=== PATIENT | female | born 1940 | race Asian ===

== ENCOUNTER 2023-10-18 16:13 | Inpatient (IN) | payer MEDICARE ==
[~2023-10-18] VITALS: Ht 160 cm; Wt 49.4 kg
[2023-10-18] MEDS ORDERED: ATOR20TA PO (17:23)
[2023-10-18] MEDS ORDERED: APIX2.5T PO (17:23)
[2023-10-18] MEDS ORDERED: BIOT5000 PO (17:23)
[2023-10-18] MEDS ORDERED: FLUT16SP16 NS (17:23)
[2023-10-18] MEDS ORDERED: ACYC400T19 PO (17:23)
[2023-10-18 17:46] LABS: BASOPHILS # (AUTO) 0.1 K/uL (0.0-0.2); BASOPHILS % (AUTO) 0.8 % (0.0-2.0); EOSINOPHILS % (AUTO) 0.1 % (0.0-6.0); HEMATOCRIT 29 % (33-45); HEMOGLOBIN 9.8 g/dL (11.5-14.8); LYMPHOCYTES # (AUTO) 1.2 K/uL (0.8-4.8); LYMPHOCYTES % (AUTO) 16.5 % (20.0-44.0); MEAN CORPUSCULAR HEMOGLOBIN 29 PG (26.0-33.0); MEAN CORPUSCULAR HGB CONC 34 g/dl (31.0-36.0); MEAN CORPUSCULAR VOLUME 84 fL (82-100); MONOCYTES # (AUTO) 2.2 K/uL (0.1-1.30); NEUTROPHILS # (AUTO) 3.8 K/uL (1.8-8.9); NEUTROPHILS % (AUTO) 52.6 % (43.0-81.0); PLATELET COUNT (AUTO) 52 K/uL (150-450); RED BLOOD CELL COUNT(AUTO) 3.45 MIL/uL (4.0-5.2); RED CELL DISTRIBUTION WIDTH 20.4 % (11.5-15.0); WHITE BLOOD COUNT (AUTO) 7.2 K/uL (4.3-11.0)
[2023-10-18 18:00] LABS: ALANINE AMINOTRANSFERASE 116 U/L (12-78); ALBUMIN 2.4 g/dL (3.4-5.0); ALKALINE PHOSPHATASE 680 U/L (46-116); ASPARTATE AMINOTRANSFERASE 540 U/L (15-37); BILIRUBIN,DIRECT 1.4 mg/dL (0.0-0.2); BILIRUBIN,TOTAL 2.2 mg/dL (0.2-1.0); CALCIUM, SERUM 9.4 mg/dL (8.5-10.1); CARBON DIOXIDE 18 mmol/L (21-32); CHLORIDE 93 mmol/L (98-107); CREATININE 0.7 mg/dL (0.6-1.3); POTASSIUM 3.6 mmol/L (3.5-5.1); SODIUM SERUM 131 mmol/L (136-145); TOTAL PROTEIN, SERUM 5.4 g/dL (6.4-8.2); UREA NITROGEN, BLOOD 16 mg/dL (7-18)
[2023-10-18] MEDS: IV NS 0.9% 1,000 ML BAG IV ONE (18:14)
[2023-10-18 18:24] LABS: BAND % (MANUAL) 6 % (0.0-5.0); LYMPHOCYTES % (MANUAL) 20 % (16-48); MONOCYTES % (MANUAL) 20 % (0-11.0); NEUTROPHILS % (MANUAL) 54 (42-76)
[2023-10-18 18:25] LABS: ANISOCYTOSIS 1+; PLATELET ESTIMATE DECREASED; TARGET CELLS 1+
[2023-10-18] MEDS: DEXTROSE 10% IN WATER 250 ML BAG IV ONE (18:25)
[2023-10-18 18:30] LABS: GLUCOSE 48 mg/dL (74-106)
[2023-10-18 20:51] LABS: ACETAMINOPHEN < 10 ug/ml (10-30)
[2023-10-18 20:52] LABS: SALICYLATE < 0.2 mg/dL (2.8-20.0)
[2023-10-18 21:09] LABS: LACTIC ACID 7.5 mmol/L (0.4-2.0)
[2023-10-18] MEDS: IV D5/ 0.9% NACL 1,000 ML IV ONE (21:40)
[2023-10-19 03:00] VITALS: BP 145/73; TEMP 100.2; O2SAT 100
[2023-10-19] MEDS: ACETAMINOPHEN 325 MG TABLET PO PRN (03:41)
[2023-10-19 05:03] VITALS: TEMP 99.1
[2023-10-19] MEDS: ACYCLOVIR 200 MG CAPSULE PO SCH (08:10)
[2023-10-19] MEDS: ATORVASTATIN 10 MG TABLET PO SCH (08:10)
[2023-10-19] MEDS: APIXABAN 2.5 MG TABLET PO SCH (08:11)
[2023-10-19] MEDS: IV D5/ 0.9% NACL 1,000 ML IV PRN (08:14)
[2023-10-19 08:22] VITALS: BP 102/58; TEMP 97.5; O2SAT 100
[2023-10-19] MEDS ORDERED: Z GUARD REMEDY 4 OZ OINT TP PRN (09:00)
[2023-10-19] MEDS: THERAHONEY GEL 1.5 OZ TUBE TP SCH ×2 (09:30→16:03)
[2023-10-19] MEDS: Z GUARD REMEDY 4 OZ OINT TP SCH (09:30)
[2023-10-19 12:51] LABS: ABG BASE EXCESS -12.3 mmol/L; ABG PCO2 23.5 mmHg (35.0-45.0); ABG PH 7.329 (7.350-7.450); ABG PO2 357.4 mmHg (75.0-100.0); ABG TOTAL HEMOGLOBIN 10.1 G/dL (12.0-16.0); COHb 0.2 % (0.5-1.5); MetHb 0.3 % (0.0-1.5); O2Hb 98.5 % (94.0-97.0); SITE, ABG Right Radial; VENT MODE, BG NRB 100%
[2023-10-19] MEDS: MEPERIDINE25 MG SYR 25 MG/ML VIAL IV STA (13:14)
[2023-10-19 16:07] VITALS: BP 91/50; TEMP 98.6; O2SAT 96
[2023-10-19] MEDS: MICAFUNGIN SODIUM 100 MG in IV NS 0.9% 100 ML IV SCH (16:07)
[2023-10-19 16:11] LABS: CREATININE, URINE 50.8 MG/DL (30.0-125.0); URINE TOTAL PROTEIN 82.9 mg/dL (0-11.9)
[2023-10-19 16:12] LABS: APPEARANCE,URINE CLEAR (CLEAR); BILIRUBIN,URINE NEGATIVE (NEGATIVE); BLOOD, URINE 2+ Ery/uL (NEGATIVE); COLOR,URINE YELLOW (YELLOW); KETONES,URINE TRACE mg/dL (NEGATIVE); LEUKOCYTE ESTERASE ,URINE NEGATIVE (NEGATIVE); NITRITE, URINE NEGATIVE (NEGATIVE); PROTEIN,URINE 1+ mg/dl (NEGATIVE); UGLUCOSE NEGATIVE (NEGATIVE); UROBILINOGEN,URINE 0.2 EU/dL (0.2)
[2023-10-19] MEDS: IV LR 1000 ML 1,000 ML IV PRN (16:35)
[2023-10-19 16:57] LABS: ADD URINE CULTURE NO; BACTERIA,URINE 1+ /HPF (None Seen); SQUAMOUS EPITHELIAL CELL,UR Few /HPF (None Seen); WBC,URINE 0-2 /HPF (0-3)
[2023-10-19 16:58] LABS: BASOPHILS # (AUTO) 0.1 K/uL (0.0-0.2); BASOPHILS % (AUTO) 1.4 % (0.0-2.0); EOSINOPHILS % (AUTO) 0.1 % (0.0-6.0); HEMATOCRIT 22 % (33-45); HEMOGLOBIN 7.2 g/dL (11.5-14.8); LYMPHOCYTES # (AUTO) 0.9 K/uL (0.8-4.8); MEAN CORPUSCULAR HEMOGLOBIN 28 PG (26.0-33.0); MEAN CORPUSCULAR HGB CONC 34 g/dl (31.0-36.0); MEAN CORPUSCULAR VOLUME 83 fL (82-100); MONOCYTES # (AUTO) 2.6 K/uL (0.1-1.30); MONOCYTES % (AUTO) 35.4 % (2.0-12.0); NEUTROPHILS # (AUTO) 3.8 K/uL (1.8-8.9); NEUTROPHILS % (AUTO) 51.1 % (43.0-81.0); RED BLOOD CELL COUNT(AUTO) 2.59 MIL/uL (4.0-5.2); RED CELL DISTRIBUTION WIDTH 20.4 % (11.5-15.0); WHITE BLOOD COUNT (AUTO) 7.5 K/uL (4.3-11.0)
[2023-10-19 16:59] LABS: EOSINOPHIL,URINE None Seen
[2023-10-19] MEDS: ARGININE/GLUTAMINE/CALCIUM BMB 1 EACH POWD.PACK PO SCH (17:07)
[2023-10-19] MEDS: MEROPENEM 1 G in IV NS 0.9% 100 ML IV SCH (17:08)
[2023-10-19 17:09] LABS: CALCIUM, SERUM 8.6 mg/dL (8.5-10.1); CARBON DIOXIDE 17 mmol/L (21-32); CHLORIDE 100 mmol/L (98-107); CREATININE 0.8 mg/dL (0.6-1.3); GLUCOSE 83 mg/dL (74-106); POTASSIUM 3.1 mmol/L (3.5-5.1); SODIUM SERUM 136 mmol/L (136-145); UREA NITROGEN, BLOOD 15 mg/dL (7-18)
[2023-10-19 17:16] LABS: ALANINE AMINOTRANSFERASE 91 U/L (12-78); ALBUMIN 1.9 g/dL (3.4-5.0); ALKALINE PHOSPHATASE 581 U/L (46-116); ASPARTATE AMINOTRANSFERASE 488 U/L (15-37); BILIRUBIN,TOTAL 1.3 mg/dL (0.2-1.0); MAGNESIUM 1.9 mg/dL (1.8-2.4); PHOSPHORUS 1.9 mg/dL (2.5-4.9); TOTAL PROTEIN, SERUM 4.2 g/dL (6.4-8.2)
[2023-10-19 17:42] LABS: PLATELET COUNT (AUTO) 28 K/uL (150-450)
[2023-10-19] MEDS: VANCOMYCIN HCL 1.25 GM in IV D5W 250 ML IV ONE (17:50)
[2023-10-19 18:43] LABS: BAND % (MANUAL) 7 % (0.0-5.0); LYMPHOCYTES % (MANUAL) 12 % (16-48); MONOCYTES % (MANUAL) 21 % (0-11.0); NEUTROPHILS % (MANUAL) 60 (42-76); PLATELET ESTIMATE DECREASED
[2023-10-19 18:44] LABS: ANISOCYTOSIS 1+; OVALOCYTES 1+
[2023-10-19 21:12] VITALS: BP 95/52; TEMP 98.1; O2SAT 98
[2023-10-20 07:28] LABS: BASOPHILS # (AUTO) 0.1 K/uL (0.0-0.2); BASOPHILS % (AUTO) 0.9 % (0.0-2.0); EOSINOPHILS % (AUTO) 0.2 % (0.0-6.0); HEMATOCRIT 22 % (33-45); HEMOGLOBIN 7.6 g/dL (11.5-14.8); LYMPHOCYTES # (AUTO) 1.4 K/uL (0.8-4.8); LYMPHOCYTES % (AUTO) 15.4 % (20.0-44.0); MEAN CORPUSCULAR HEMOGLOBIN 28 PG (26.0-33.0); MEAN CORPUSCULAR HGB CONC 35 g/dl (31.0-36.0); MEAN CORPUSCULAR VOLUME 82 fL (82-100); MONOCYTES % (AUTO) 43.3 % (2.0-12.0); NEUTROPHILS # (AUTO) 3.7 K/uL (1.8-8.9); NEUTROPHILS % (AUTO) 40.2 % (43.0-81.0); RED CELL DISTRIBUTION WIDTH 20.2 % (11.5-15.0); WHITE BLOOD COUNT (AUTO) 9.3 K/uL (4.3-11.0)
[2023-10-20 07:45] LABS: ALANINE AMINOTRANSFERASE 93 U/L (12-78); ALKALINE PHOSPHATASE 630 U/L (46-116); ASPARTATE AMINOTRANSFERASE 484 U/L (15-37); CALCIUM, SERUM 8.9 mg/dL (8.5-10.1); CARBON DIOXIDE 21 mmol/L (21-32); CHLORIDE 101 mmol/L (98-107); CREATININE 0.7 mg/dL (0.6-1.3); GLUCOSE 72 mg/dL (74-106); MAGNESIUM 1.9 mg/dL (1.8-2.4); PHOSPHORUS 1.3 mg/dL (2.5-4.9); POTASSIUM 3.1 mmol/L (3.5-5.1); SODIUM SERUM 137 mmol/L (136-145); TOTAL PROTEIN, SERUM 4.4 g/dL (6.4-8.2); UREA NITROGEN, BLOOD 13 mg/dL (7-18)
[2023-10-20 07:48] LABS: PLATELET COUNT (AUTO) 35 K/uL (150-450)
[2023-10-20 07:53] LABS: THYROID STIMULATING HORMONE 3.579 uIU/mL (0.358-3.74); URIC ACID 5.8 mg/dL (2.6-7.2)
[2023-10-20] MEDS: PROSOURCE / PROSTAT (PYXIS) 30 ML UDC GT SCH (08:23)
[2023-10-20 08:29] VITALS: BP 110/58; TEMP 97.9; O2SAT 98
[2023-10-20 08:30] VITALS: BP 110/58; TEMP 97.9; O2SAT 98
[2023-10-20] MEDS: POTASSIUM CHLORIDE 20 MEQ TAB.PRT.SR PO SCH (10:04)
[2023-10-20 10:23] LABS: BAND % (MANUAL) 8 % (0.0-5.0); BASOPHILS % (MANUAL) 0 % (0.0-2.0); EOSINOPHILS % (MANUAL) 0 % (0-4); LYMPHOCYTES % (MANUAL) 14 % (16-48)
[2023-10-20 10:24] LABS: ANISOCYTOSIS 1+; HYPOCHROMASIA 1+; OVALOCYTES 1+; PLATELET ESTIMATE DECREASED
[2023-10-20] MEDS: K PHOS NEUTRAL 250 MG TABLET PO ONE (15:29)
[2023-10-20 16:38] VITALS: BP 154/94; TEMP 98.8; O2SAT 96
[2023-10-20] MEDS: VANCOMYCIN 750 MG in IV D5W 250 ML IV SCH (17:09)
[2023-10-20 20:00] VITALS: BP 142/70; TEMP 98.2; O2SAT 96
[2023-10-20 21:42] VITALS: BP 129/70; TEMP 98.2
[2023-10-21] VITALS (26 sets, daily range): BP systolic 75–131; BP diastolic 46–101; TEMP 98–98.6; O2SAT 96–100
[2023-10-21 11:22] LABS: BASOPHILS # (AUTO) 0.2 K/uL (0.0-0.2); BASOPHILS % (AUTO) 1.1 % (0.0-2.0); EOSINOPHILS % (AUTO) 0.2 % (0.0-6.0); HEMATOCRIT 28 % (33-45); LYMPHOCYTES # (AUTO) 2.8 K/uL (0.8-4.8); LYMPHOCYTES % (AUTO) 16.2 % (20.0-44.0); MEAN CORPUSCULAR HEMOGLOBIN 28 PG (26.0-33.0); MEAN CORPUSCULAR HGB CONC 32 g/dl (31.0-36.0); MEAN CORPUSCULAR VOLUME 88 fL (82-100); MONOCYTES # (AUTO) 0.1 K/uL (0.1-1.30); MONOCYTES % (AUTO) 0.9 % (2.0-12.0); NEUTROPHILS # (AUTO) 13.8 K/uL (1.8-8.9); NEUTROPHILS % (AUTO) 81.6 % (43.0-81.0); RED BLOOD CELL COUNT(AUTO) 3.18 MIL/uL (4.0-5.2); RED CELL DISTRIBUTION WIDTH 21.9 % (11.5-15.0)
[2023-10-21] MEDS ORDERED: IV NS 0.9% 1,000 ML BAG IV PRN (11:30)
[2023-10-21 11:37] LABS: CALCIUM, SERUM 9.3 mg/dL (8.5-10.1); CHLORIDE 98 mmol/L (98-107); MAGNESIUM 2.1 mg/dL (1.8-2.4); PHOSPHORUS 4.8 mg/dL (2.5-4.9); POTASSIUM 5.5 mmol/L (3.5-5.1); SODIUM SERUM 138 mmol/L (136-145); UREA NITROGEN, BLOOD 18 mg/dL (7-18)
[2023-10-21 11:40] LABS: ABG BASE EXCESS -19.3 mmol/L; ABG OXYGEN SATURATION 95.8 % (92.0-98.5); ABG PCO2 16.9 mmHg (35.0-45.0); ABG PH 7.211 (7.350-7.450); ABG PO2 100.4 mmHg (75.0-100.0); ABG TOTAL HEMOGLOBIN 8.9 G/dL (12.0-16.0); COHb 0.3 % (0.5-1.5); MetHb 0.4 % (0.0-1.5); O2Hb 95.1 % (94.0-97.0); SITE, ABG Right Radial; VENT MODE, BG 3LNC
[2023-10-21 11:58] LABS: PLATELET COUNT (AUTO) 32 K/uL (150-450)
[2023-10-21 12:01] LABS: CARBON DIOXIDE 7 mmol/L (21-32); GLUCOSE 5 mg/dL (74-106)
[2023-10-21 12:04] LABS: MONOCYTES % (MANUAL) 12 % (0-11.0); NEUTROPHILS % (MANUAL) 66 (42-76)
[2023-10-21 12:06] LABS: ANISOCYTOSIS 1+; BAND % (MANUAL) 4 % (0.0-5.0); BASOPHILS % (MANUAL) 0 % (0.0-2.0); EOSINOPHILS % (MANUAL) 0 % (0-4); HYPOCHROMASIA 1+; LYMPHOCYTES % (MANUAL) 16 % (16-48); MONOCYTES % (MANUAL) 6 % (0-11.0); NEUTROPHILS % (MANUAL) 76 (42-76); OVALOCYTES 1+; PLATELET ESTIMATE DECREASED
[2023-10-21] MEDS: DEXTROSE 50%-WATER 50 ML DISP.SYRIN IVP ONE (12:21)
[2023-10-21] MEDS: IV NS 0.9% 500 ML BAG IV ONE (12:21)
[2023-10-21] MEDS ORDERED: DEXTROSE 50%-WATER 50 ML DISP.SYRIN IVP ONE (12:30)
[2023-10-21] MEDS: SODIUM BICARBONATE SYR 50 MEQ/50 ML DISP.SYRIN IV ONE (12:32)
[2023-10-21] MEDS: DEXTROSE 50%-WATER 50 ML DISP.SYRIN IVP PRN (13:19)
[2023-10-21] MEDS ORDERED: IV 10% DEXTROSE 1,000 ML IV SCH (13:30)
[2023-10-21 14:25] LABS: LACTIC ACID 19.3 mmol/L (0.4-2.0)
[2023-10-21] MEDS ORDERED: NOREPINEPHRINE 8 MG in IV D5W 242 ML IV PRN (14:30)
[2023-10-21] MEDS: Sodium Chloride 154 MEQ in IV 10% DEXTROSE 1,000 ML IV SCH (14:44)
[2023-10-21 14:55] LABS: ABG BASE EXCESS -20.7 mmol/L; ABG OXYGEN SATURATION 96.9 % (92.0-98.5); ABG PCO2 11.9 mmHg (35.0-45.0); ABG PH 7.226 (7.350-7.450); ABG PO2 118.5 mmHg (75.0-100.0); ABG TOTAL HEMOGLOBIN 7.5 G/dL (12.0-16.0); AaDO2 117.2 mmHg; COHb 0.3 % (0.5-1.5); MetHb 0.6 % (0.0-1.5); SITE, ABG Right Radial; VENT MODE, BG NASAL CANNULA
[2023-10-21] MEDS ORDERED: PHENYLEPHRINE 50 MG in IV NS 0.9% 245 ML IV PRN (15:00)
[2023-10-21 17:06] LABS: BILIRUBIN,DIRECT 2.1 mg/dL (0.0-0.2)
[2023-10-21 17:45] LABS: LACTIC ACID REFLEX 18.6 mmol/L (0.4-1.9)
[2023-10-21] MEDS ORDERED: DEXTROSE 50%-WATER 50 ML DISP.SYRIN IV PRN (19:30)
[2023-10-21 21:21] LABS: ABG BASE EXCESS -15.4 mmol/L; ABG OXYGEN SATURATION 97.9 % (92.0-98.5); ABG PCO2 16.6 mmHg (35.0-45.0); ABG PH 7.338 (7.350-7.450); ABG PO2 131.9 mmHg (75.0-100.0); ABG TOTAL HEMOGLOBIN 7.7 G/dL (12.0-16.0); AaDO2 76.8 mmHg; COHb 0.3 % (0.5-1.5); MetHb 0.6 % (0.0-1.5); SITE, ABG Right Radial; VENT MODE, BG NC 3LPM
[2023-10-21] MEDS: SODIUM BICARBONATE SYR 50 MEQ/50 ML DISP.SYRIN ONE (22:48)
[2023-10-21] MEDS: Sodium Bicarbonate 100 MEQ in IV D5W 1,000 ML IV SCH (22:56)
[2023-10-22] VITALS (41 sets, daily range): BP systolic 107–153; BP diastolic 55–78; TEMP 97.7–98.2; O2SAT 98–100
[2023-10-22] MEDS: BLOOD SUGAR DIAGNOSTIC 1 EACH STRIP IN SCH
[2023-10-22 05:16] LABS: BASOPHILS % (AUTO) 0.3 % (0.0-2.0); EOSINOPHILS % (AUTO) 0.5 % (0.0-6.0); LYMPHOCYTES % (AUTO) 10.1 % (20.0-44.0); MEAN CORPUSCULAR HEMOGLOBIN 28 PG (26.0-33.0); MEAN CORPUSCULAR HGB CONC 34 g/dl (31.0-36.0); MEAN CORPUSCULAR VOLUME 82 fL (82-100); MONOCYTES # (AUTO) 5.1 K/uL (0.1-1.30); MONOCYTES % (AUTO) 51.6 % (2.0-12.0); NEUTROPHILS # (AUTO) 3.7 K/uL (1.8-8.9); NEUTROPHILS % (AUTO) 37.5 % (43.0-81.0); RED BLOOD CELL COUNT(AUTO) 2.42 MIL/uL (4.0-5.2); RED CELL DISTRIBUTION WIDTH 21.5 % (11.5-15.0)
[2023-10-22 05:26] LABS: CALCIUM, SERUM 8.2 mg/dL (8.5-10.1); CARBON DIOXIDE 17 mmol/L (21-32); CHLORIDE 102 mmol/L (98-107); CREATININE 1.4 mg/dL (0.6-1.3); GLUCOSE 166 mg/dL (74-106); MAGNESIUM 1.9 mg/dL (1.8-2.4); PHOSPHORUS 3.3 mg/dL (2.5-4.9); POTASSIUM 4.3 mmol/L (3.5-5.1); SODIUM SERUM 137 mmol/L (136-145); UREA NITROGEN, BLOOD 32 mg/dL (7-18)
[2023-10-22 05:43] LABS: HEMATOCRIT 20 % (33-45); HEMOGLOBIN 6.7 g/dL (11.5-14.8); PLATELET COUNT (AUTO) 48 K/uL (150-450)
[2023-10-22] MEDS ORDERED: Sodium Bicarbonate 100 MEQ in IV D5W 1,000 ML IV SCH (07:12)
[2023-10-22 11:42] LABS: ANISOCYTOSIS 1+; BASOPHILS % (MANUAL) 0 % (0.0-2.0); EOSINOPHILS % (MANUAL) 3 % (0-4); HYPOCHROMASIA 1+; LYMPHOCYTES % (MANUAL) 16 % (16-48); MONOCYTES % (MANUAL) 38 % (0-11.0); NEUTROPHILS % (MANUAL) 43 (42-76); OVALOCYTES 1+; PLATELET ESTIMATE DECREASED
[2023-10-22 13:50] LABS: RHEUMATOID FACTOR SCREEN NEGATIVE (NEGATIVE)
[2023-10-22 13:54] LABS: URIC ACID 11.7 mg/dL (2.6-7.2)
[2023-10-22] MEDS: Sodium Bicarbonate 100 MEQ in IV D5W 1,000 ML IV SCH (15:27)
[2023-10-22] MEDS: ALLOPURINOL 100 MG TABLET PO SCH (15:28)
[2023-10-22 15:32] LABS: VBG AaDO2 96.3 mmHg; VBG BASE EXCESS -1.5 mmol/L (-3-3); VBG COHb 0.3 %; VBG MetHb 0.6 %; VBG O2Hb 95.8 %; VBG OXYGEN SATURATION 96.7 %; VBG PCO2 27.7 mmHg (40-52); VBG PH 7.499 (7.31-7.41); VBG PO2 99.5 mmHg (30-50); VBG TOTAL HEMOGLOBIN 9.1 G/dL (12.0-16.0); VENT MODE, VBG 3 LPM NC
[2023-10-22 17:11] LABS: INR 1.67 (0.91-1.10); LACTIC ACID 4.2 mmol/L (0.4-2.0); PARTIAL THROMBOPLASTIN TIME 42.9 SEC (24.3-34.3); PROTHROMBIN TIME 17.1 SECS (9.2-11.1)
[2023-10-22 17:18] LABS: ALANINE AMINOTRANSFERASE 897 U/L (12-78); ALBUMIN 1.7 g/dL (3.4-5.0); ALKALINE PHOSPHATASE 676 U/L (46-116); ASPARTATE AMINOTRANSFERASE > 1000 U/L (15-37); BILIRUBIN,DIRECT 1.8 mg/dL (0.0-0.2); BILIRUBIN,TOTAL 2.6 mg/dL (0.2-1.0); TOTAL PROTEIN, SERUM 3.6 g/dL (6.4-8.2)
[2023-10-22 17:23] LABS: D-DIMER 16.47 mg/L(FEU (0.17-0.50)
[2023-10-22] MEDS: diphenhydrAMINE HCL 50 MG/ML VIAL IV ONE (17:57)
[2023-10-22] MEDS: ACETAMINOPHEN 325 MG TABLET PO ONE (17:57)
[2023-10-22] MEDS: methylPREDNISolone SOD SUCC 125 MG/2ML VIAL IV ONE (19:16)
[2023-10-22] MEDS: IV NS 0.9% 1,000 ML IV ONE (20:46)
[2023-10-22] MEDS: methylPREDNISolone SOD SUCC 125 MG/2ML VIAL IV SCH (21:08)
[2023-10-23] VITALS: BP 125/67; TEMP 97.2; O2SAT 100
[2023-10-23 04:00] VITALS: BP 116/81; TEMP 97.3; O2SAT 100
[2023-10-23 09:48] LABS: BASOPHILS % (AUTO) 0.4 % (0.0-2.0); EOSINOPHILS % (AUTO) 0.1 % (0.0-6.0); HEMATOCRIT 33 % (33-45); HEMOGLOBIN 11.1 g/dL (11.5-14.8); LYMPHOCYTES # (AUTO) 1.3 K/uL (0.8-4.8); LYMPHOCYTES % (AUTO) 16.9 % (20.0-44.0); MEAN CORPUSCULAR HEMOGLOBIN 28 PG (26.0-33.0); MEAN CORPUSCULAR HGB CONC 34 g/dl (31.0-36.0); MEAN CORPUSCULAR VOLUME 82 fL (82-100); MONOCYTES # (AUTO) 2.7 K/uL (0.1-1.30); MONOCYTES % (AUTO) 36.4 % (2.0-12.0); NEUTROPHILS # (AUTO) 3.5 K/uL (1.8-8.9); NEUTROPHILS % (AUTO) 46.2 % (43.0-81.0); RED BLOOD CELL COUNT(AUTO) 4.04 MIL/uL (4.0-5.2); RED CELL DISTRIBUTION WIDTH 21.3 % (11.5-15.0); WHITE BLOOD COUNT (AUTO) 7.5 K/uL (4.3-11.0)
[2023-10-23 09:51] LABS: PLATELET COUNT (AUTO) 26 K/uL (150-450)
[2023-10-23 10:09] LABS: INR 1.53 (0.91-1.10); PROTHROMBIN TIME 15.8 SECS (9.2-11.1)
[2023-10-23 10:10] LABS: D-DIMER 15.53 mg/L(FEU (0.17-0.50)
[2023-10-23 10:16] LABS: ALANINE AMINOTRANSFERASE 820 U/L (12-78); ALBUMIN 1.6 g/dL (3.4-5.0); ALKALINE PHOSPHATASE 759 U/L (46-116); ASPARTATE AMINOTRANSFERASE > 1000 U/L (15-37); BILIRUBIN,DIRECT 2.1 mg/dL (0.0-0.2); BILIRUBIN,TOTAL 3.7 mg/dL (0.2-1.0); CALCIUM, SERUM 8.1 mg/dL (8.5-10.1); CARBON DIOXIDE 18 mmol/L (21-32); CHLORIDE 104 mmol/L (98-107); CREATININE 1.5 mg/dL (0.6-1.3); GLUCOSE 168 mg/dL (74-106); MAGNESIUM 2.2 mg/dL (1.8-2.4); PHOSPHORUS 4.6 mg/dL (2.5-4.9); POTASSIUM 4.4 mmol/L (3.5-5.1); SODIUM SERUM 139 mmol/L (136-145); TOTAL PROTEIN, SERUM 3.9 g/dL (6.4-8.2); UREA NITROGEN, BLOOD 48 mg/dL (7-18)
[2023-10-23 12:07] LABS: ANISOCYTOSIS 1+; BAND % (MANUAL) 11 % (0.0-5.0); LYMPHOCYTES % (MANUAL) 14 % (16-48); MONOCYTES % (MANUAL) 24 % (0-11.0); NEUTROPHILS % (MANUAL) 51 (42-76); OVALOCYTES 1+; PLATELET ESTIMATE DECREASED
[2023-10-24 05:13] LABS: FOLIC ACID 18.7 ng/mL (>3.0)
[2023-10-24 07:10] LABS: HEPATITIS B SURFACE AB Non Reactive (.); IMMUNOGLOBULIN A, SERUM 101 mg/dL (64-422); IMMUNOGLOBULIN G, SERUM 449 mg/dL (586-1602); IMMUNOGLOBULIN M, SERUM 6 mg/dL (26-217)
[2023-10-24 08:07] LABS: *ANA ANTI-CENTROMERE B AB <0.2 AI (0.0-0.9); *ANA ANTI-DNA(DS) AB, QN <1 IU/mL (0-9); *ANA ANTI-JO-1 <0.2 AI (0.0-0.9); *ANA ANTICHROMATIN ANTIBODY <0.2 AI (0.0-0.9); *ANA RNP ANTIBODIES <0.2 AI (0.0-0.9); *ANA SJOGREN'S ANTI-SS-A <0.2 AI (0.0-0.9); *ANA SJOGREN'S ANTI-SS-B <0.2 AI (0.0-0.9); *ANAANTI-SCLERODERMA-70 AB <0.2 AI (0.0-0.9); *ANASMITH AB <0.2 AI (0.0-0.9); *SPE A/G RATIO 1.1 (0.7-1.7); *SPE ALBUMIN 1.9 g/dL (2.9-4.4); *SPE ALPHA-1-GLOBULIN 0.3 g/dL (0.0-0.4); *SPE ALPHA-2-GLOBULIN 0.4 g/dL (0.4-1.0); *SPE BETA GLOBULIN 0.7 g/dL (0.7-1.3); *SPE GLOBULIN, TOTAL 1.8 g/dL (2.2-3.9); *SPE M-SPIKE Not Observed g/dL (Not Observed); *SPE PROTEIN TOTAL 3.7 g/dL (6.0-8.5); *SPEGAMMA GLOBULIN 0.4 g/dL (0.4-1.8)
[2023-10-24 12:10] LABS: FREE KAPPA LT CHAINS SERUM 11.8 mg/L (3.3-19.4); KAPPA/LAMBDA RATIO SERUM 0.79 (0.26-1.65)
== END 2023-10-23 14:50 | disposition short-term general hospital (02) | DRG 853 ==
LOC: ER 16:18 → MED 10-19 01:55 → ICU 10-21 11:38 → TELE-TD 10-22 22:54 → TELE1 10-23 09:57
PROVIDERS: ADMIT Internal Medicine; ATTEND Nurse Practitioner Acute Care
PROC: 0JB70ZZ Excision of Back Subcutaneous Tissue and Fascia, Open Approach (ICD-10-PCS; 2023-10-20)
PROC: 05HY33Z Insertion of Infusion Device into Upper Vein, Percutaneous Approach (ICD-10-PCS; 2023-10-21)
PROC: 30233N1 Transfusion of Nonautologous Red Blood Cells into Peripheral Vein, Percutaneous Approach (ICD-10-PCS; principal; 2023-10-22)
DX: A41.9 Sepsis, unspecified organism (principal); D65 Disseminated intravascular coagulation [defibrination syndrome]; E88.3 Tumor lysis syndrome; L89.153 Pressure ulcer of sacral region, stage 3; R65.21 Severe sepsis with septic shock; C85.90 Non-Hodgkin lymphoma, unspecified, unspecified site; E44.0 Moderate protein-calorie malnutrition; E87.1 Hypo-osmolality and hyponatremia; D61.818 Other pancytopenia; E87.20 Acidosis, unspecified; I47.10 Supraventricular tachycardia, unspecified; N17.9 Acute kidney failure, unspecified; D68.4 Acquired coagulation factor deficiency; Z68.1 Body mass index [BMI] 19.9 or less, adult; M48.56XA Collapsed vertebra, not elsewhere classified, lumbar region, initial encounter for fracture; S36.119A Unspecified injury of liver, initial encounter; R62.7 Adult failure to thrive; E86.0 Dehydration; E16.2 Hypoglycemia, unspecified; D72.821 Monocytosis (symptomatic); E78.5 Hyperlipidemia, unspecified; E86.1 Hypovolemia; E88.09 Other disorders of plasma-protein metabolism, not elsewhere classified; K83.8 Other specified diseases of biliary tract; Z88.2 Allergy status to sulfonamides; Z92.21 Personal history of antineoplastic chemotherapy; R74.01 Elevation of levels of liver transaminase levels; R53.1 Weakness; D64.9 Anemia, unspecified; E80.6 Other disorders of bilirubin metabolism; Z79.01 Long term (current) use of anticoagulants; R79.89 Other specified abnormal findings of blood chemistry; K52.9 Noninfective gastroenteritis and colitis, unspecified
CPT/HCPCS: 36410; 36415; 36600; 71045-TC; 76700-TC; 80048-TC; 80053-TC; 80076-TC; 80202-TC; 81001; 82247-TC; 82248-TC; 82570-TC; 82607-TC; 82728-TC; 82784; 82803-TC; 82962-TC; 83540-TC; 83605-TC; 83615-TC; 83735-TC; 84100-TC; 84155; 84165; 84300-TC; 84443-TC; 84484-TC; 84550-TC; 85025-TC; 85027-TC; 85396; 86225; 86235; 86334; 86431-TC; 86706; 86803; 86850-TC; 87040-TC; 87340; 93307-TC; 94799-TC; A4223; G0378; J1200; J2175; J2185; J2248; J2930; J3371; J3490; J7030; J7040; J7042; J7050; J7060; J7070; J7120; P9016